=== PATIENT | female | born 1985 | race Two or more races ===

== ENCOUNTER → 2025-03-03 | Outpatient (CLI) | payer BC, SELFPAY ==
--- NOTE | 2025-03-03 16:16 | XR_ITS ---
Examination: Shoulder, right, 3 views Technique: Shoulder AP internal rotation, AP external rotation, Y view shoulder, 3 views Exam date and time : March 03, 2025, 1624 hours INDICATIONS: Patient fell 3 weeks ago with into the shoulder, shoulder pain. FINDINGS: Old deformity right humeral neck. No acute fracture No shoulder dislocation 2 mm AC joint separation IMPRESSION: Mild narrowing glenohumeral joint Old healed fracture humeral neck 2 mm AC joint separation, clinical correlation advised
== END | disposition home or self-care (01) ==
PROVIDERS: PCP Family Medicine; Referring Provider Family Medicine; Visit Provider Family Medicine
DX: M25.811 Other specified joint disorders, right shoulder (principal); S43.101A Unspecified dislocation of right acromioclavicular joint, initial encounter; W19.XXXA Unspecified fall, initial encounter
CPT/HCPCS: 73030